=== PATIENT | female | born 1980 | race Caucasian/White ===

== ENCOUNTER 2018-07-09 07:05 | Inpatient (IN) | payer BC ==
[2018-07-09] MEDS ORDERED: ELECTROLYTE-148 SOLN 1,000 ML IV SCH ×2 (13:30→15:30)
[2018-07-09 13:51] LABS: BASO % 0.4 % (0-2.0); EOS % 0.1 % (0-4.5); HEMATOCRIT 37.9 % (32.4-45.2); MCH 31.6 pg (25.7-33.7); MCHC 34.3 g/dl (32.0-36.0); MEAN CELL VOLUME 91.9 fl (80-96); MEAN PLT VOLUME 7.7 fl (7.5-11.1); MONO % 4.9 % (3.8-10.2); NEUT % 82.6 % (42.8-82.8); PLATELET COUNT 256 K/MM3 (134-434); RBC 4.12 M/mm3 (3.60-5.2); RDW 14.5 % (11.6-15.6); WHITE BLOOD COUNT 11.2 K/mm3 (4.0-10.0)
[2018-07-09 13:55] VITALS: BMI 42.3
[2018-07-09 14:13] LABS: INR 0.93 (0.83-1.09)
[2018-07-09 14:15] LABS: ACTIVATED PTT 29.1 SECONDS (25.2-36.5)
[2018-07-09] MEDS ORDERED: FENTANYL/BUPIVACAINE/NS/PF - PCEA - 50 ML DISP.SYRIN EP ONE (14:15)
[2018-07-09 14:19] LABS: ANION GAP 11 MMOL/L (8-16); BLOOD UREA NITROGEN 8 mg/dL (7-18); CALCIUM 9.1 mg/dL (8.5-10.1); CHLORIDE 103 mmol/L (98-107); CO2 21 mmol/L (21-32); CREATININE 0.6 mg/dL (0.55-1.3); GLUCOSE,RANDOM 92 mg/dL (74-106); SODIUM 135 mmol/L (136-145)
[2018-07-09] MEDS ORDERED: BUPIVACAINE HCL/PF 0.25% (2.5MG/ML) 10 ML VIAL ONE ×2 (14:45→17:16)
[2018-07-09] MEDS ORDERED: NALOXONE HCL 0.4 MG/ML VIAL IVPUSH PRN (15:18)
[2018-07-09] MEDS ORDERED: FENTANYL/BUPIVACAINE/NS/PF - PCEA - 50 ML DISP.SYRIN EP SCH (15:30)
[2018-07-09 15:37] LABS: RPR NONREACTIVE (NONREACTIVE)
--- NOTE | 2018-07-09 15:41 | HP ---
Past Medical History - Primary Care Physician PCP:: Dank Jack - Admission Chief Complaint: 37yo P1 with at EGA 40w0d admitted in spontaneous labor. 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: No: Alzheimer's, CVA, Dementia, Migraine, Multiple Sclerosis, Peripheral Neuropathy, Parkinson's, Seizure, Syncope, TIA, Vertigo, Other Cardiovascular: No: AFIB, Aneurysm, Aortic Insufficiency, Aortic Stenosis, CAD, CHF, Deep Vein Thrombosis, HTN, Hyperlipdemia, CT, Mitral Insufficiency, Mitral Stenosis, Murmur, Pulmonary Hypertension, Other Pulmonary: No: Asthma, Bronchitis, Cancer, COPD, O2 Dependent, Pneumonia, Previously Intubated, Pulmonary Embolus, Pulmonary Fibrosis, Sleep Apnea, Other Gastrointestinal: No: Ascites, Cancer, Constipation, Crohn's Disease, Diverticulitis, Diverticulosis, Esophageal Varices, Gastritis, GERD, GI Bleed, Hemorrhoids, Hiatal Hernia, Inflamatory Bowel Disease, Irritable Bowel Disease, Pancreatitis, Peptic Ulcer Disease, Ulcerative Colitis, Other Hepatobiliary: No: Cirrhosis, Cholelithiasis, Cholecystitis, Choledocholithiasis , Hepatitis A, Hepatitis B, Hepatitis C, Other Renal/: No: Renal Failure, Renal Inusuff, BPH, Cancer, Hematuria, Hemodialysis , Neurogenic Bladder, Renal Calculi, UTI, Other ...: 2 ...Para: 1 () ...Term: 1 ...LMP: 10/01/17 ... Weeks Gestation by Dates: 40 ...EDC by Dates: 07/09/18 ...EDC by Sono: 07/09/18 Heme/Onc: No: Anemia, B12 Deficiency, Bleeding Disorder, Cancer, Current Chemotherapy, Current Radiation Therapy, Hemochromatosis, Hypercoaguable State, Myeloproliferative Synd, Sickle Cell Disease, Sickle Cell Trait, Thrombocytopenia, Other Infectious Disease: No: AIDS, C-Diff, Herpes Zoster, HIV, MRSA, STD's, Tuberculosis, VREF, Other Psych: No: Addictions, Anxiety, Bipolar, Depression, Panic, Psychosis, Schizophrenia, Other Musculoskeletal: No: Bursitis, Chronic low back pain, Hemiparesis, Hemiplegia, Osteoarthritis, Paraplegia, Other Rheumatology: No: Fibromyalgia, Gout, Lupus, Rheumatoid Arthritis, Sarcoidosis, Vasculitis, Other ENT: No: Allergic Rhinitis, Sinusitis, Other Endocrine: No: Cash's Disease, Indu's Disease, Diabetes Insipidus, Diabetes Mellitus, Hyperparathyroidism, Hyperthyroidism, Hypothyroidism, Osteopenia, SIADH, Other Dermatology: Yes: Other (superficial skin infection under panus) - Past Surgical History Past Surgical History: Yes: None Hx Myomectomy: No Hx Transabdominal Cerclage: No - Smoking History Smoking history: Never smoked Have you smoked in the past 12 months: No - Alcohol/Substance Use Hx Alcohol Use: No History of Substance Use: reports: None - Social History Usual Living Arrangement: Yes: With Spouse, With Child ADL: Independent Occupation: History of Recent Travel: No Home Medications - Allergies Allergies/Adverse Reactions: Allergies Allergy/AdvReac Type Severity Reaction Status Date / Time No Known Allergies Allergy Verified 07/07/18 16:59 - Home Medications Home Medications: Ambulatory Orders Vits96/Iron Fum/Folic [ Tablet] 1 tab PO DAILY 06/21/18 Family Disease History - Family Disease History Family Disease History: Heart Disease: Father (afib), CA: Grandparent (tavia ca) , Other: Sister (gallstones) Review of Systems - Review of Systems Constitutional: reports: No Symptoms Eyes: reports: No Symptoms HENT: reports: No Symptoms Neck: reports: No Symptoms Cardiovascular: reports: No Symptoms Respiratory: reports: No Symptoms Gastrointestinal: reports: No Symptoms Genitourinary: reports: No Symptoms Breasts: reports: No Symptoms Reported Musculoskeletal: reports: No Symptoms Integumentary: reports: Erythema, Rash Neurological: reports: No Symptoms Endocrine: reports: No Symptoms Hematology/Lymphatic: reports: No Symptoms Psychiatric: reports: No Symptoms Pain Intensity: 0 (s/p epidural, comfortable) Physical Exam - Maternity Vital Signs: Vital Signs Temperature 97.7 F 07/09/18 14:30 Pulse Rate 84 07/09/18 14:30 Respiratory Rate 20 07/09/18 14:30 Blood Pressure 140/79 07/09/18 14:30 O2 Sat by Pulse Oximetry (%) Constitutional: Yes: No Distress, Calm, Obese (morbidly) Eyes: Yes: Conjunctiva Clear HENT: Yes: Atraumatic, Pharyngeal Erythema Neck: Yes: WNL, Supple, Trachea Midline Cardiovascular: Yes: WNL, Regular Rate and Rhythm Lungs: Clear to auscultation, Normal air movement - Abdominal Exam/OB Fundal Height: 41 Number of Fetuses: Single Presentation: Vertex Contractions: Yes Regularity: Regular Intensity: Unaware Monitor Mode: External Heart Rate (range): 145 Heart Rate Location: Midline Category: I (moderate variabililty) Accelerations: Non-Uniform Decelerations: Variable (x 2-3 that now resolved) - Vaginal Exam/OB Vaginal Bleediing: No Speculum Exam: No Dilatation (cm): 6 Effacement (%): 90 Amniotic Membrane Status: Ruptured (AROM) Amniotic Fluid: Yes: Clear Presentation: Vertex/Position Station: -3 (Adequate gynecoid pelvimetry, EFW ~9lb by US and Leo's maneuvers.) - Physical Exam Musculoskeletal: Yes: WNL Extremities: Yes: WNL Edema: Yes Edema: LLE: Trace, RLE: Trace Integumentary: Yes: WNL Deep Tendon Reflex Grade: Normal +2 ...Motor Strength: WNL Psychiatric: Yes: WNL, Alert, Oriented - Labs Lab Results: CBC, BMP 07/09/18 13:42 07/09/18 13:42 Hemorrhage Risk Assessment - Risk Factors Medium Risk Factors: Yes: Obesity (BMI >40) High Risk Factors: Yes: None Risk Score: 1 Risk Level: Medium Risk Imaging - Results Ultrasound: Report Reviewed Assessment/Plan 37yo P1 with at EGA 40w0d admitted in spontaneous labor. 1. Fetus with Category I tracing. She had 2-3 variable decels after AROM that resolved with pt's position change. 2. Labor progressing spontaneously. Contractions are q2-3min 3. Morbid obesity and suspected macrosomia d/w pt. I explained that the US estimation of EFW is limited by maternal body habitus and late gestational age. We discussed the risks of shoulder dystocia and management options. She declined an elective C/S. We discussed the risks of maternal and morbidity and mortality, including but not limited to shoulder dystocia, injury/, emergency C/S, hemorrhage, DVT/VTE/PE, etc. We also discussed the surgical risks of C/S. The pt wants to proceed with labor. She has normal gynecoid pelvimetry. Plan to monitor labor progress.
[2018-07-09] MEDS ORDERED: TUBERCULIN PPD 5 TU/0.1ML SYRINGE (IN PATIENT USE ONLY) ID ONE (16:00)
[2018-07-09] MEDS ORDERED: LIDOCAINE HCL 1% PRESERVATIVE FREE - 30ML VIAL ONE (16:54)
[2018-07-09] MEDS ORDERED: OXYTOCIN 20 UNITS in 0.9% NS 20 UNIT/1,000 ML INFUS.BAG IV ONE ×2 (16:54→18:39)
[2018-07-09 17:59] LABS: VENOUS PC02 43.4 mmHg (41-51); VENOUS PH 7.36 (7.31-7.41)
[2018-07-09 18:02] LABS: ARTERIAL BLD GAS O2 SATURATION 16.1 % (95-98); ARTERIAL BLOOD GAS BASE EXCESS -4.2 meq/l (-2-2); ARTERIAL BLOOD GAS PCO2 59.5 mmHg (35-45); ARTERIAL BLOOD GAS pH 7.23 (7.35-7.45)
[2018-07-09 18:04] LABS: VENOUS PO2 28.7 mmHg (30-40)
[2018-07-09 18:08] LABS: ARTERIAL BLOOD GAS PO2 13.2 mmHg (80-105)
[2018-07-09] MEDS ORDERED: METHYLERGONOVINE MALEATE 0.2 MG/1 ML AMP IM PRN (22:16)
[2018-07-09] MEDS ORDERED: WITCH HAZEL 50% (TUCKS) 40 PAD/JAR PAD TP PRN (22:16)
[2018-07-09] MEDS ORDERED: BISACODYL 10 MG SUPP.RECT RC PRN (22:16)
[2018-07-09] MEDS ORDERED: BENZOCAINE 20% 57 GM BOTTLE TP PRN (22:16)
[2018-07-09] MEDS ORDERED: IBUPROFEN 600 MG TABLET (FP) PO PRN (22:16)
[2018-07-09] MEDS ORDERED: BENZOCAINE 28 GM HEMORRHOIDAL OINTMENT TP PRN (22:16)
[2018-07-09] MEDS ORDERED: ACETAMINOPHEN 325 MG TABLET (FP) PO PRN (22:16)
--- NOTE | 2018-07-09 22:16 | PN ---
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
[2018-07-09] MEDS ORDERED: OXYTOCIN 20 UNITS in 0.9% NS 20 UNIT/1,000 ML INFUS.BAG IV SCH (22:30)
[2018-07-10 08:17] LABS: BASO % 0.1 % (0-2.0); EOS % 0.2 % (0-4.5); HEMOGLOBIN 10.7 GM/dL (10.7-15.3); LYMPH % 17.2 % (8-40); MCH 31.9 pg (25.7-33.7); MCHC 34.3 g/dl (32.0-36.0); MEAN CELL VOLUME 92.9 fl (80-96); MEAN PLT VOLUME 7.5 fl (7.5-11.1); MONO % 9.7 % (3.8-10.2); NEUT % 72.8 % (42.8-82.8); PLATELET COUNT 206 K/MM3 (134-434); RBC 3.34 M/mm3 (3.60-5.2); RDW 14.8 % (11.6-15.6); WHITE BLOOD COUNT 11.9 K/mm3 (4.0-10.0)
--- NOTE | 2018-07-10 09:09 | PN ---
Progress Note (short form) - Note Progress Note: ppd1 doing well. no excess vaginal bleeding CBC, BMP 07/10/18 07:00 07/09/18 13:42 Last Vital Signs Temp Pulse Resp BP Pulse Ox 98.5 F 94 H 20 122/79 100 07/10/18 06:00 07/10/18 06:00 07/10/18 06:00 07/10/18 06:00 07/09/18 17:00 abdomen soft, non tender , no cva uterus frm , non tender lochia mild no calf tenderness plan ambulate ,cbc
[2018-07-10] MEDS: PRENATAL VITAMINS W/ FOLIC ACID TABLET (FP) PO SCH (11:59)
[2018-07-10] MEDS ORDERED: SENNOSIDES/DOCUSATE COMBO (SENNA PLUS) TABLET (UD) PO PRN (22:00)
--- NOTE | 2018-07-11 08:33 | DS ---
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: Vital Signs Temperature 98.4 F 07/10/18 08:00 Pulse Rate 87 07/10/18 08:00 Respiratory Rate 20 07/10/18 08:00 Blood Pressure 122/81 07/10/18 08:00 O2 Sat by Pulse Oximetry (%) 100 07/09/18 17:00 Constitutional: Yes: Well Nourished, No Distress, Calm Eyes: Yes: WNL, Conjunctiva Clear, EOM Intact HENT: Yes: WNL, Atraumatic, Normocephalic Neck: Yes: WNL, Supple, Trachea Midline Cardiovascular: Yes: WNL, Regular Rate and Rhythm Respiratory: Yes: WNL, Regular, CTA Bilaterally Gastrointestinal: Yes: WNL ...Rectal Exam: Yes: WNL Renal/: Yes: WNL ....Post : Yes: Uterus firm, Uterus non-tender, Slight lochia rubra Breast(s): Yes: WNL Musculoskeletal: Yes: WNL Extremities: Yes: WNL Edema: No Integumentary: Yes: WNL Neurological: Yes: WNL, Alert, Oriented ...Motor Strength: WNL Psychiatric: Yes: WNL, Alert, Oriented Labs: CBC, BMP 07/10/18 07:00 07/09/18 13:42 Delivery - Delivery Vaginal Delivery: No Problems, Spontaneous Type of Anesthesia: Local, Epidural Episiotomy/Laceration: Midline, 2nd degree EBL (cc): 300 Delivery, Single - Stages of Labor Date 1st Stage Initiatied: 07/09/18 Time 1st Stage Initiated: 02:45 Date 2nd Stage Initiated: 07/09/18 Time 2nd Stage Initiated: 17:00 Date of Delivery: 07/09/18 Time of Delivery: 17:24 Time Placenta Delivered: 17:40 Placenta: Yes: Spontaneous, Normal Configuration - 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 You may walk unlimited jeff of and climb stairs. You may resume driving the car when you feel safe and comfortable behind the wheel. No sexual activity as instructed. Wound care If you have a bandage, leave it on, and keep dry for 48-72 hours. After that time discard the outer bandage. If they are tapes on the skin under the out of bandage leave them in place. They will peel off in the next 7 to 10 days. Do Not Peel them off. You may shower the day after surgery. If there are tapes present on the skin, you may shower over them. Diet There are no dietary restrictions. Eat healthy, high-fiber foods. Drink 6 to 8 glasses of liquid each day. This will assist in keeping your bowels are regular. Pain management You may take Tylenol or acetaminophen or Ibuprofen (for example, Motrin, Advil etc.) from my pain prescription medication is ordered should be taken as prescribed for moderate to severe pain. Call MD for any of the following: Severe pain not relieved by medication Fever of 101 or higher Excessive bleeding or drainage on dressing Inability to urinate Referrals: Dank Jack MD [Staff Physician] - Disposition: HOME - Home Medications Comprehensive Discharge Medication List: Ambulatory Orders Vits96/Iron Fum/Folic [ Tablet] 1 tab PO DAILY 06/21/18
[2018-07-11] MEDS: PRENATAL VITAMINS W/ FOLIC ACID TABLET (FP) PO SCH (10:24)
[2018-07-11 11:09] VITALS: BP 120/68; PULSE 84; TEMP 98
== END 2018-07-11 18:20 | disposition home or self-care (01) | DRG 807 ==
LOC: JDEL 07:05 → JLDR 12:45 → J3W 19:55
PROVIDERS: ADMIT Obstetrics & Gynecology; ATTEND Obstetrics & Gynecology
PROC: 10E0XZZ Delivery of Products of Conception, External Approach (ICD-10-PCS; principal; 2018-07-09)
DX: O99.214 Obesity complicating childbirth (principal); Z37.0 Single live birth; O48.0 Post-term pregnancy; E66.01 Morbid (severe) obesity due to excess calories; O70.1 Second degree perineal laceration during delivery; Z3A.40 40 weeks gestation of pregnancy
CPT/HCPCS: 36415; 36600; 59409; 71046-TC-FY; 80048; 82803; 85025; 85610; 85730; 86593; 86850; 86900; 86901; 87389